=== PATIENT | female | born 1975 | race African-American/Black ===

== ENCOUNTER 2017-06-13 10:04 | Emergency (ER) | payer OTHER ==
[~2017-06-13] VITALS: Ht 156.2 cm; Wt 120.2 kg
[~2017-06-13 10:04] MED LIST: ALBU2.5V14 NEB; AZIT1PAC PO; CETI10TA16 PO; CLAR500T PO; Doxycycline Hyclate PO; FLUO20TA11 PO; FLUO60TA PO; FLUT1DIS3 INH; HYDR-971 PO; HYDR115S2 PO; HYDR25CA75 PO; IBUP-1060 PO; LEVO500T59 PO; LURA40TA PO; METH4TAB2 PO; NAPR500T8 PO; POTA10TA12 PO; PRED-220 PO; PRED20TA PO; PRED50TA PO; PROAIR HFA8.5 GM IH; TOPI25TA52 PO; TRAM50TA PO
[2017-06-13 10:25] VITALS: BP 131/73
--- NOTE | 2017-06-13 10:54 | PHYS DOC ---
Past Medical History Past Medical History: Anxiety, Asthma, Bipolar, Depression Additional Past Medical Histor: carpal tunnel (bilaterally), delusional thinking, pseudopregnancy, si Past Surgical History: Hysterectomy Additional Past Surgical Histo: sinus surgery Alcohol Use: None Drug Use: None Adult General Chief Complaint Chief Complaint: Intermittent dizziness, rash HPI HPI Patient is a 41 year old female who presents with 2 complaints. She's had a rash for several days, worsening in nature. She had placed hydrocortisone on it and this is what worsen. She was exposed to ring worm by her family member. Denies any known fevers, it is pruritic in nature. She also complains of intermittent dizziness where she feels like she is losing her balance. She states it does worsen when she gets up and moves around, she does work in housekeeping. It is not present at all times, does resolve when she rests. Denies any runny nose or other symptoms. She denies any focal weakness, she has history of migraines but does not have migraines with this. Denies any blurry vision. Review of Systems Review of Systems Constitutional: Denies fever or chills [] Eyes: Denies change in visual acuity, redness, or eye pain [] HENT: Denies nasal congestion or sore throat [] Respiratory: Denies cough or shortness of breath [] Cardiovascular: Denies Chest pain GI: Denies abdominal pain, nausea, vomiting, bloody stools or diarrhea [] : Denies dysuria or hematuria [] Musculoskeletal: Denies back pain or joint pain [] Integument: Rash Neurologic: Per history of present illness Allergies Allergies Allergies Coded Allergies Type Severity Reaction Last Updated Verified Penicillins Allergy Intermediate 08/31/15 Yes cephalexin Allergy Intermediate 08/31/15 Yes doxycycline Allergy Intermediate 12/07/15 Yes Physical Exam Physical Exam Constitutional: Well developed, well nourished, no acute distress, non-toxic appearance. [] HENT: Normocephalic, atraumatic, bilateral external ears normal, oropharynx moist, no oral exudates, nose normal. [] Eyes: PERRLA, EOMI, conjunctiva normal, no discharge. [] Neck: Normal range of motion, no tenderness, supple, no stridor. [] Cardiovascular:Heart rate bradycardic with regular rhythm, no murmur [] Lungs & Thorax: Bilateral breath sounds clear to auscultation [] Abdomen: Bowel sounds normal, soft, no tenderness, no masses, no pulsatile masses. [] Skin: Warm, dry, areas of circular erythema with raised borders, consistent with ringworm, right back/left face/left arm Back: No tenderness, no CVA tenderness. [] Extremities: No tenderness, no cyanosis, no clubbing, ROM intact, no edema. [] Neurologic: Alert and oriented X 3, normal motor function, normal sensory function, no focal deficits noted. CN II-XII intact Psychologic: Affect normal, judgement normal, mood normal. [] Current Patient Data Vital Signs Vital Signs Date Time Temp Pulse Resp B/P (MAP) Pulse Ox O2 Delivery O2 Flow Rate FiO2 06/13/17 10:25 98.5 58 16 131/73 (92) 97 Room Air 98.5 Lab Values Laboratory Tests Test 06/13/17 09:31 06/13/17 10:15 06/13/17 10:55 06/13/17 11:02 POC Urine HCG, Qualitative Hcg negative (Negative) Urine Collection Type Unknown Urine Color Yellow Urine Clarity Clear Urine pH 6.0 Urine Specific [place] 1.025 Urine Protein Negative mg/dL (NEG-TRACE) Urine Glucose (UA) Negative mg/dL (NEG) Urine Ketones (Stick) Negative mg/dL (NEG) Urine Blood Negative (NEG) Urine Nitrite Negative (NEG) Urine Bilirubin Negative (NEG) Urine Urobilinogen Dipstick 1.0 mg/dL (0.2 mg/dL) Urine Leukocyte Esterase Negative (NEG) Urine RBC 0 /HPF (0-2) Urine WBC 0 /HPF (0-4) Urine Squamous Epithelial Cells Few /LPF Urine Bacteria 0 /HPF (0-FEW) Urine Mucus Marked /LPF White Blood Count 5.7 x10^3/uL (4.0-11.0) Red Blood Count 4.34 x10^6/uL (3.50-5.40) Hemoglobin 13.1 g/dL (12.0-15.5) Hematocrit 39.8 % (36.0-47.0) Mean Corpuscular Volume 92 fL (79-100) Mean Corpuscular Hemoglobin 30 pg (25-35) Mean Corpuscular Hemoglobin Concent 33 g/dL (31-37) Red Cell Distribution Width 14.0 % (11.5-14.5) Platelet Count 200 x10^3/uL (140-400) Neutrophils (%) (Auto) 51 % (31-73) Lymphocytes (%) (Auto) 37 % (24-48) Monocytes (%) (Auto) 8 % (0-9) Eosinophils (%) (Auto) 3 % (0-3) Basophils (%) (Auto) 1 % (0-3) Neutrophils # (Auto) 2.9 x10^3uL (1.8-7.7) Lymphocytes # (Auto) 2.1 x10^3/uL (1.0-4.8) Monocytes # (Auto) 0.4 x10^3/uL (0.0-1.1) Eosinophils # (Auto) 0.2 x10^3/uL (0.0-0.7) Basophils # (Auto) 0.1 x10^3/uL (0.0-0.2) POC Hemoglobin 13.3 g/dL (12-15) POC Hematocrit 39 % (36-40) POC Sodium 142 mmol/L (135-145) POC Potassium 3.7 mmol/L (3.5-5.0) POC Chloride 103 mmol/L (98-110) POC Total CO2 25 mmol/L (23-32) Anion Gap 18 mmol/L (6-14) H POC Blood Urea Nitrogen 15 mg/dL (8-26) POC Creatinine 0.7 mg/dL (0.5-1.4) Glucose Level 93 mg/dL (70-99) POC Ionized Calcium (Jose) 1.17 mmol/L (1.13-1.32) Laboratory Tests 06/13/17 10:55 Laboratory Tests 06/13/17 11:02 EKG EKG 55 bpm, sinus, normal axis, normal intervals, no ST elevation, J-point elevation in V2, aVL, T waves nonischemic, interpreted by me [] Radiology/Procedures Radiology/Procedures CT head: IMPRESSION: No acute intracranial abnormality is detected. Course & Med Decision Making Course & Med Decision Making Pertinent Labs and Imaging studies reviewed. (See chart for details) Patient really has ringworm and we will treat with appropriate medications. Dizziness causes unknown, patient and that she has not anything to eat or drink today which is not uncommon. She does have some intermittent bradycardia as low as 45 on the monitor but more consistently in the upper 50s. CT of the head was performed along with lab work and EKG. HR remained steady in the 50s. Remaining workup unremarkable. Will treat with Lotrimin cream, recommend close f/u with PCP Elliott Disclaimer Elliott Disclaimer This electronic medical record was generated, in whole or in part, using a voice recognition dictation system. Departure Departure Impression: Primary Impression: Ringworm Additional Impression: Dizziness Disposition: HOME, SELF-CARE Condition: STABLE Referrals: UNKNOWN PCP NAME (PCP) Patient Instructions: Body Ringworm, Dizziness, [id number] Additional Instructions: Please schedule follow-up with your doctor to ensure your symptoms are well controlled. Drink water and eat regularly Problem Qualifiers JUAN HINOJOSA MD Jun 13, 2017 10:54
[2017-06-13 11:01] LABS: BILIRUBIN,URINE NEGATIVE (NEG); GLUCOSE,URINE NEGATIVE (NEG); NITRITE,URINE NEGATIVE (NEG); PROTEIN,URINE NEGATIVE (NEG-TRACE)
[2017-06-13 11:10] LABS: BASO # 0.1 x10^3/uL (0.0-0.2); BASO % 1 % (0-3); EOS % 3 % (0-3); HEMATOCRIT 39.8 % (36.0-47.0); HEMOGLOBIN 13.1 g/dL (12.0-15.5); LYMPH # 2.1 x10^3/uL (1.0-4.8); LYMPH % 37 % (24-48); MEAN CORPUSCULAR HEMOGLOBIN 30 pg (25-35); MEAN CORPUSCULAR HGB CONC 33 g/dL (31-37); MEAN CORPUSCULAR VOLUME 92 fL (79-100); MONO % 8 % (0-9); NEUT % 51 % (31-73); PLATELET COUNT 200 x10^3/uL (140-400); RED BLOOD COUNT 4.34 x10^6/uL (3.50-5.40); WHITE BLOOD COUNT 5.7 x10^3/uL (4.0-11.0)
[2017-06-13 11:10] LABS: POTASSIUM ISTAT 3.7 mmol/L (3.5-5.0)
[2017-06-13 11:15] LABS: BACTERIA,URINE 0 /HPF (0-FEW); RBC,URINE 0 /HPF (0-2); WBC,URINE 0 /HPF (0-4)
[2017-06-13 11:16] LABS: SQUAMOUS EPITHELIAL CELL,UR FEW /LPF
--- NOTE | 2017-06-13 11:23 | RAD ---
CT of the head without contrast, 06/13/2017: History: Dizziness, headache Comparison is made to a study from 02/26/2016. The ventricles are within normal limits in size. There is no shift of the midline structures. There is no evidence of acute intracranial hemorrhage or mass effect. IMPRESSION: No acute intracranial abnormality is detected. PQRS Compliance Statement: One or more of the following individualized dose reduction techniques were utilized for this examination: 1. Automated exposure control 2. Adjustment of the mA and/or kV according to patient size 3. Use of iterative reconstruction technique
[2017-06-13] MEDS ORDERED: CLOT12CR2 TP (11:56)
--- NOTE | 2017-06-13 12:50 | EKG ---
[facility] [address] [place] [address] Test Date: 2017-06-13 Test Time: 10:39:08 Pat Name: JASMIN WESLEY Department: Room: Gender: F Exhibit Electrician: : 1975 Requested By: JUAN HINOJOSA Order Number: [id number] Reading MD: Jennifer Flores Measurements Intervals Silver Rate: 55 P: 51 NC: 162 QRS: 22 QRSD: 92 T: 8 QT: 426 QTc: 410 Interpretive Statements SINUS RHYTHM INCOMPLETE RIGHT BUNDLE BRANCH BLOCK Electronically Signed On 06-14-2017 20:34:10 CDT by Jennifer Flores
== END 2017-06-13 12:10 | disposition home or self-care (01) ==
LOC: ER 10:04
DX: B35.9 Dermatophytosis, unspecified (principal); R42 Dizziness and giddiness; F31.9 Bipolar disorder, unspecified; J45.909 Unspecified asthma, uncomplicated; F41.9 Anxiety disorder, unspecified; Z88.0 Allergy status to penicillin; Z88.1 Allergy status to other antibiotic agents; Z90.49 Acquired absence of other specified parts of digestive tract
CPT/HCPCS: 36415; 70450; 80047; 81001; 81025; 85025; 93005; 99285-25

== ENCOUNTER 2017-07-02 11:04 | Emergency (ER) | payer SELFPAY ==
[~2017-07-02] VITALS: Ht 154.9 cm; Wt 120.2 kg
[~2017-07-02 11:04] MED LIST changes: +CLOT12CR2 TP
[2017-07-02] MEDS ORDERED: HYDROcodone/APAP 5/325MG 1 TAB TABLET PO ONE (11:15)
[2017-07-02 11:16] VITALS: BP 128/70
[2017-07-02] MEDS ORDERED: NAPROXEN 500 MG TABLET PO STA (11:18)
--- NOTE | 2017-07-02 11:23 | PHYS DOC ---
Past Medical History Past Medical History: Anxiety, Asthma, Bipolar, Depression Additional Past Medical Histor: carpal tunnel (bilaterally), delusional thinking, pseudopregnancy, si Past Surgical History: Hysterectomy Additional Past Surgical Histo: sinus surgery Alcohol Use: None Drug Use: None Adult General Chief Complaint Chief Complaint: KNEE INJURY HPI HPI Patient is a 41 year old female with a history of depression and bipolar anxiety who presents today with throbbing moderate medial left knee pain that began last night after she slipped and fell pain is worse on weight bearing. Patient states she was walking down steps to get into a pool when she slipped and fell rotating her left knee out/externally. Patient denies any loss of consciousness. Denies hitting her head on the ground. Review of Systems Review of Systems Constitutional: Denies fever or chills [] Musculoskeletal: Left knee pain Integument: Denies rash or skin lesions [] Neurologic: Denies headache, focal weakness or sensory changes [] Current Medications Current Medications Current Medications Medications (Trade) Dose Ordered Sig/Francisco Start Time Stop Time Status Last Admin Dose Admin Acetaminophen/ Hydrocodone Bitart (Lortab 5/325) 1 tab 1X ONCE 07/02/17 11:15 07/02/17 11:18 DC 07/02/17 11:24 1 TAB Naproxen (Naprosyn) 500 mg 1X STAT 07/02/17 11:18 07/02/17 11:19 DC 07/02/17 11:24 500 MG Allergies Allergies Allergies Coded Allergies Type Severity Reaction Last Updated Verified Penicillins Allergy Intermediate 08/31/15 Yes cephalexin Allergy Intermediate 08/31/15 Yes doxycycline Allergy Intermediate 12/07/15 Yes Physical Exam Physical Exam Constitutional: Well developed, well nourished, no acute distress, non-toxic appearance. [] Skin: Warm, dry, no erythema, no rash. [] Back: No tenderness, no CVA tenderness. [] Extremities: Left knee with no obvious deformity. Tenderness medially to the left knee. Limited range of motion to the left knee due to pain. Patient is favoring her LLE by holding her left knee straight. +2 left pedal pulse. Cap refill less than 2 seconds the left lower extremity. Sensation intact to the left lower extremity. Neurologic: Alert and oriented X 3, normal motor function, normal sensory function, no focal deficits noted. [] Psychologic: Affect normal, judgement normal, mood normal. [] Current Patient Data Vital Signs Vital Signs Date Time Temp Pulse Resp B/P (MAP) Pulse Ox O2 Delivery O2 Flow Rate FiO2 07/02/17 11:16 97.9 66 20 98 Room Air 97.9 EKG EKG [] Radiology/Procedures Radiology/Procedures [] Course & Med Decision Making Course & Med Decision Making Pertinent Labs and Imaging studies reviewed. (See chart for details) Patient is in the ED with left knee pain that began last night after she fell. Left knee x-rays interpreted by radiologist were negative for any acute findings. Patient was placed in a knee immobilizer by the environmental technician, neurovascular exam is normal. Ice elevation encouraged. Provided crutches, discharged with Ultram. Dragon Disclaimer Dragon Disclaimer This electronic medical record was generated, in whole or in part, using a voice recognition dictation system. Departure Departure Impression: Primary Impression: Fall down steps Additional Impression: Left knee sprain Disposition: HOME, SELF-CARE Condition: STABLE Referrals: UNKNOWN PCP NAME (PCP) SHARON WASHINGTON MD follow up in one week if pain continues Patient Instructions: Fall Prevention and Home Safety, Knee Sprain, Easy-to- Read Additional Instructions: You were seen for left knee sprain. Ice and elevate the extremity. Wear the immobilizer provided as tolerated. Follow-up with orthopedic doctor provided in one week if pain continues. Take the prescribed medicine as needed for pain. Do not drive or operate machinery on the pain medicine. Scripts Tramadol Hcl (ULTRAM) 50 Mg Tablet 1 TAB PO Q6HRS, #30 TAB Prov: AMIRA NOEL APRN 07/02/17 Problem Qualifiers Primary Impression: Fall down steps Encounter type: initial encounter Qualified Codes: W10.8XXA - Fall (on) ( from) other stairs and steps, initial encounter Additional Impression: Left knee sprain Encounter type: initial encounter Involved ligament of knee: unspecified ligament Qualified Codes: S83.92XA - Sprain of unspecified site of left knee, initial encounter AMIRA NOEL APRN Jul 02, 2017 11:23
--- NOTE | 2017-07-02 11:52 | RAD ---
Examination: 3 views of the left knee History: History of slipping in the pool , knee pain. Comparison: None available Findings: The alignment of the knee joint grossly appears unremarkable. There is no acute fracture or dislocation identified. Impression: No acute osseous findings
[2017-07-02] MEDS ORDERED: TRAM-48 PO (12:11)
== END 2017-07-02 12:18 | disposition home or self-care (01) ==
LOC: ER 11:04
DX: S83.92XA Sprain of unspecified site of left knee, initial encounter (principal); F41.9 Anxiety disorder, unspecified; F31.9 Bipolar disorder, unspecified; J45.909 Unspecified asthma, uncomplicated; Z88.0 Allergy status to penicillin; Z88.1 Allergy status to other antibiotic agents; W10.9XXA Fall (on) (from) unspecified stairs and steps, initial encounter; Y93.01 Activity, walking, marching and hiking; Y92.89 Other specified places as the place of occurrence of the external cause; Y99.8 Other external cause status
CPT/HCPCS: 29505; 73562; 99284-25

== ENCOUNTER 2017-12-08 09:07 | Emergency (ER) | payer OTHER | END 2017-12-08 10:45 | disposition home or self-care (01) | LOC: ER 09:07 | DX: S96.912A Strain of unspecified muscle and tendon at ankle and foot level, left foot, initial encounter (principal); M25.531 Pain in right wrist; J45.909 Unspecified asthma, uncomplicated; Z88.0 Allergy status to penicillin; Z88.1 Allergy status to other antibiotic agents; W22.8XXA Striking against or struck by other objects, initial encounter; Y93.89 Activity, other specified; Y92.89 Other specified places as the place of occurrence of the external cause; Y99.8 Other external cause status | CPT/HCPCS: 73110; 73610; 99284 ==

== ENCOUNTER 2018-01-09 15:40 | Emergency (ER) | payer OTHER | END 2018-01-09 16:50 | disposition home or self-care (01) | LOC: ER 15:40 | DX: S83.92XA Sprain of unspecified site of left knee, initial encounter (principal); J45.909 Unspecified asthma, uncomplicated; F31.9 Bipolar disorder, unspecified; Z98.51 Tubal ligation status; Z88.0 Allergy status to penicillin; Z88.1 Allergy status to other antibiotic agents; Z88.8 Allergy status to other drugs, medicaments and biological substances; W01.0XXA Fall on same level from slipping, tripping and stumbling without subsequent striking against object, initial encounter; Y93.89 Activity, other specified; Y99.8 Other external cause status; Y92.89 Other specified places as the place of occurrence of the external cause | CPT/HCPCS: 73564; 99284 ==

== ENCOUNTER 2018-03-24 18:53 | Emergency (ER) | payer OTHER | END 2018-03-24 19:21 | disposition home or self-care (01) | LOC: ER 18:53 | DX: S60.211A Contusion of right wrist, initial encounter (principal); J45.909 Unspecified asthma, uncomplicated; F31.9 Bipolar disorder, unspecified; Z88.0 Allergy status to penicillin; Z88.1 Allergy status to other antibiotic agents; W22.01XA Walked into wall, initial encounter; Y93.89 Activity, other specified; Y99.8 Other external cause status; Y92.89 Other specified places as the place of occurrence of the external cause | CPT/HCPCS: 99283 ==

== ENCOUNTER 2019-02-20 16:26 | Emergency (ER) | payer OTHER ==
[~2019-02-20] VITALS: Ht 154.9 cm; Wt 120.2 kg
[~2019-02-20 16:26] MED LIST changes: +ALBU2.5V8 IH; +CLOT15CR5 TP; +HYDR-3164 PO; -HYDR-971 PO; -PROAIR HFA8.5 GM IH; +TRAM-48 PO
[2019-02-20 16:51] VITALS: BP 144/76
[2019-02-20] MEDS ORDERED: CETI10TA22 PO (18:08)
[2019-02-20] MEDS ORDERED: CIPR10DR AS (18:08)
--- NOTE | 2019-02-20 18:28 | PHYS DOC ---
Past Medical History Past Medical History: Anxiety, Asthma, Bipolar, Depression Additional Past Medical Histor: carpal tunnel (bilaterally), delusional thinking, pseudopregnancy, si (HARMEET SIDDIQUI APRN) Past Surgical History: Tubal ligation Additional Past Surgical Histo: sinus surgery (HARMEET SIDDIQUI APRN) Alcohol Use: None Drug Use: None (HARMEET SIDDIQUI APRN) Adult General Chief Complaint Chief Complaint: EARACHE/EAR PAIN HPI HPI Patient is 43-year-old female who presents with an earache in the left ear and sore throat since Monday night. The patient describes the pain is throbbing also states she has a buzzing in her left ear. Patient denies swimming recently and says that she does not have a history of lots of earaches. Patient rates her severity 10 out of 10. Patient states that she has been getting hot and cold. Patient says that she took some [id number] pain drops in her left ear on Monday this did not help. The patient has a history of allergies and takes what she thinks is Claritin on a daily basis. This complaint has continued to persist and caused her to decide to come to the ER this evening. (HARMEET SIDDIQUI APRN) Review of Systems Review of Systems Constitutional: Has been having intermittent hot and cold [] Eyes: Denies change in visual acuity, redness, or eye pain [] HENT: Sore throat, L ear pain, Buzzing in L ear. Respiratory: Denies cough or shortness of breath [] Cardiovascular: No additional information not addressed in HPI [] GI: Denies abdominal pain, nausea, vomiting, bloody stools or diarrhea [] : Denies dysuria or hematuria [] Musculoskeletal: Denies back pain or joint pain [] Integument: Denies rash or skin lesions [] Neurologic: Denies headache, focal weakness or sensory changes [] Endocrine: Denies polyuria or polydipsia [] All other systems were reviewed and found to be within normal limits, except as documented in this note. (HARMEET SIDDIQUI APRN) Allergies Allergies Allergies Coded Allergies Type Severity Reaction Last Updated Verified Penicillins Allergy Intermediate 08/31/15 Yes cephalexin Allergy Intermediate 08/31/15 Yes doxycycline Allergy Intermediate 12/07/15 Yes (HARMEET TRIVEDI DO) Physical Exam Physical Exam Constitutional: Well developed, well nourished, no acute distress, non-toxic appearance. [] HENT: Normocephalic, atraumatic, left ear has inflammation and exudate, right ear was unable to visualize tympanic membrane due to earwax, oropharynx moist, tonsillar swelling bilaterally, Uvula is midline, patient is swallowing without difficulty, and no pulling of secretions. [] Eyes: PERRLA, conjunctiva normal, no discharge. [] Neck: No nuchal rigidity, trachea midline [] Cardiovascular:Heart rate regular rhythm, no murmur [] Lungs & Thorax: Bilateral breath sounds clear to auscultation [] Skin: Warm, dry, no erythema, no rash. [] Extremities: No tenderness, no cyanosis, no clubbing, ROM intact, no edema. [] Neurologic: Alert and oriented X 3 Psychologic: Affect normal, judgement normal, mood normal. [] (HARMEET SIDDIQUI APRN) Current Patient Data Vital Signs Vital Signs Date Time Temp Pulse Resp B/P (MAP) Pulse Ox O2 Delivery O2 Flow Rate FiO2 02/20/19 16:51 98.5 85 20 144/76 (98) 98 Room Air 98.5 (TRIVEDI,HARMEET Martins DO) EKG EKG [] (HARMEET SIDDIQUI APRN) Radiology/Procedures Radiology/Procedures [] (HARMEET SIDDIQUI APRN) Course & Med Decision Making Course & Med Decision Making Patient was evaluated for L ear pain and sore throat. Clinical exam revealed Otitis Externa. Offered strep test, pt declined. Discussed with patient to be sure to take all antibiotics and can use warm compresses. Also discussed with the patient that she should follow up with pcp or ENT symptoms do not improve. Discussed her sore throat and she asked for me to prescribe her an antihistamine has history of seasonal allergies. Education on signs and symptoms to return to ER for and discharge symptoms discussed. Patient has been non-toxic in appearance and having no difficulty swallowing. Pt had no care provided by Kimberly Gilliam NP during this ER visit. (HARMEET SIDDIQUI APRN) Dragon Disclaimer Dragon Disclaimer This electronic medical record was generated, in whole or in part, using a voice recognition dictation system. (HARMEET SIDDIQUI APRN) Departure Departure Impression: Primary Impression: Otitis externa of left ear Additional Impression: Environmental and seasonal allergies Disposition: HOME, SELF-CARE Condition: STABLE Referrals: NATANAEL LEES APRN (PCP) Patient Instructions: Otalgia, Otitis Externa, [id number] Additional Instructions: For pain control please take either ibuprofen or Tylenol please use the directions on the container. Please be sure to finish all the antibiotic for the complete 7 days. If you continue having problems follow up with the primary care doctor or make an appointment with an ENT. Scripts Cetirizine Hcl (ZYRTEC) 10 Mg Tablet 1 TAB PO DAILY, #30 TAB 0 Refills Prov: HARMEET SIDDIQUI APRN 02/20/19 Ciprofloxacin/Hydrocortisone (CIPRO HC OTIC SUSPENSION) 10 Ml Drops.susp 3 DROP BID for ottitis externa for 7 Days, ML 0 Refills Prov: HARMEET SIDDIQUI APRN 02/20/19 Attending Signature Attending Signature I have reviewed the PA/SOFTWARE TEST DEVELOPER's note and plan of care. I was available for consultation as needed during the patient's visit in the emergency department. I agree with the clinical impression, plan, and disposition. (HARMEET TRIVEDI DO) Problem Qualifiers HARMEET SIDDIQUI APRN Feb 20, 2019 18:27 HARMEET TRIVEDI DO Feb 21, 2019 05:37
== END 2019-02-20 18:44 | disposition home or self-care (01) ==
LOC: ER 16:26
DX: H60.92 Unspecified otitis externa, left ear (principal); J45.909 Unspecified asthma, uncomplicated; F31.9 Bipolar disorder, unspecified; F41.9 Anxiety disorder, unspecified; Z88.0 Allergy status to penicillin; Z88.1 Allergy status to other antibiotic agents
CPT/HCPCS: 99283

== ENCOUNTER 2020-04-08 20:35 | Emergency (ER) | payer OTHER ==
[~2020-04-08] VITALS: Ht 156.2 cm; Wt 122.7 kg
[~2020-04-08 20:35] MED LIST changes: +CETI10TA24 PO; +CIPR10DR AS; +CLAR-7 PO; -CLAR500T PO
--- NOTE | 2020-04-08 21:51 | RAD ---
Study: CR ANKLE RIGHT 2V Indication: Twisting injury. Comparison: None. Findings: Edematous soft tissues about the ankle as well as extending along the dorsum of the foot. No displaced fracture at the ankle. The ankle mortise is symmetric. Findings at the anterior ankle which can be seen with anterior impingement. Subtle cortical irregularity along the proximal/dorsal aspect of the navicular bone. Impression: 1. No fracture or traumatic malalignment at the ankle. 2. Very subtle cortical irregularity at the proximal/dorsal aspect of the navicular. The overlying soft tissues are edematous. Recommend correlation for localized tenderness that would suggest a nondisplaced avulsion injury. Electronically signed by: JOLLY COBOS MD (04/08/2020 9:48 PM) [id number]
[2020-04-08] MEDS ORDERED: METH-38 PO (22:06)
--- NOTE | 2020-04-08 22:06 | PHYS DOC ---
Past Medical History Past Medical History: Anxiety, Asthma, Bipolar, Depression, Migraines Additional Past Medical Histor: carpal tunnel (bilaterally), delusional thinking, pseudopregnancy, si Past Surgical History: Tubal ligation, Other Additional Past Surgical Histo: sinus surgery, PARTIAL TUBAL LIGATION Smoking Status: Never Smoker Alcohol Use: None Drug Use: None General Adult EDM: Chief Complaint: LOWER EXT PAIN HPI: HPI: 44-year-old female past medical history significant for asthma, obesity, depression and sinus disease, presents to the ED with complaints of accidental slip and fall in her shower around 3:30 PM this afternoon. Patient states her left leg slipped forward as her right ankle twisted, landed with her legs underneath her. Did not hit her head or lose consciousness. Is not on any anticoagulants. Complains of left posterior buttock pain that radiates down her left leg and right lateral ankle pain. No prior surgical history. Review of Systems: Review of Systems: Constitutional: Denies fever or chills. [] Eyes: Denies change in visual acuity. [] HENT: Denies nasal congestion or sore throat. [] Respiratory: Denies cough or shortness of breath. [] Cardiovascular: Denies chest pain or edema. [] GI: Denies abdominal pain, nausea, vomiting, bloody stools or diarrhea. [] : Denies dysuria. [] Musculoskeletal: Denies back pain or joint pain. [] Integument: Denies rash. [] Neurologic: Denies headache, focal weakness or sensory changes. [] Endocrine: Denies polyuria or polydipsia. [] Lymphatic: Denies swollen glands. [] Psychiatric: Denies depression or anxiety. [] Heart Score: Risk Factors: Risk Factors: DM, Current or recent (<one month) smoker, HTN, HLP, family history of CAD, obesity. Risk Scores: Score 0 - 3: 2.5% MACE over next 6 weeks - Discharge Home Score 4 - 6: 20.3% MACE over next 6 weeks - Admit for Clinical Observation Score 7 - 10: 72.7% MACE over next 6 weeks - Early Invasive Strategies Allergies: Allergies: Allergies Coded Allergies Type Severity Reaction Last Updated Verified Penicillins Allergy Intermediate 08/31/15 Yes cephalexin Allergy Intermediate 08/31/15 Yes doxycycline Allergy Intermediate 12/07/15 Yes Physical Exam: PE: Constitutional: Well developed, well nourished, no acute distress, non-toxic appearance. [] HENT: Normocephalic, atraumatic, bilateral external ears normal, oropharynx moist, no oral exudates, nose normal. [] Eyes: PERRLA, EOMI, conjunctiva normal, no discharge. [] Neck: Normal range of motion, no tenderness, supple, no stridor. [] Cardiovascular:Heart rate regular rhythm, no murmur [] Lungs & Thorax: Bilateral breath sounds clear to auscultation [] Abdomen: Bowel sounds normal, soft, no tenderness, no masses, no pulsatile masses. [] Skin: Warm, dry, no erythema, no rash. [] Back: No tenderness, no CVA tenderness. [] Extremities: No tenderness, no cyanosis, no clubbing, ROM intact, no edema. [] Neurologic: Alert and oriented X 3, normal motor function, normal sensory function, no focal deficits noted. [] ambulates w/o distress/worsening r ankle pain Psychologic: Affect normal, judgement normal, mood normal. [] Current Patient Data: Vital Signs: Vital Signs Date Time Temp Pulse Resp B/P (MAP) Pulse Ox O2 Delivery O2 Flow Rate FiO2 04/08/20 20:49 98.0 78 18 145/87 (106) 98 Room Air 98.0 EKG: EKG: [] Radiology/Procedures: Radiology/Procedures: IMAGING REPORT Signed PATIENT: JASMIN WESLEY ACCOUNT: [id number] : 1975 LOCATION: ER AGE: 44 SEX: F EXAM STATUS: REG ER ORD. PHYSICIAN: GONZALO LOMBARDO DO REASON: twisted anikle PROCEDURE: ANKLE RIGHT 2V Study: CR ANKLE RIGHT 2V Indication: Twisting injury. Comparison: None. Findings: Edematous soft tissues about the ankle as well as extending along the dorsum of the foot. No displaced fracture at the ankle. The ankle mortise is symmetric. Findings at the anterior ankle which can be seen with anterior impingement. Subtle cortical irregularity along the proximal/dorsal aspect of the navicular bone. Impression: 1. No fracture or traumatic malalignment at the ankle. 2. Very subtle cortical irregularity at the proximal/dorsal aspect of the navicular. The overlying soft tissues are edematous. Recommend correlation for localized tenderness that would suggest a nondisplaced avulsion injury. Electronically signed by: JOLLY COBOS MD (04/08/2020 9:48 PM) [id number] DICTATED and SIGNED BY: JOLLY COBOS MD DATE: 04/08/20 2148 Course & Med Decision Making: Course & Med Decision Making Pertinent Labs and Imaging studies reviewed. (See chart for details) [] Dragon Disclaimer: Dragon Disclaimer: This electronic medical record was generated, in whole or in part, using a voice recognition dictation system. Departure Departure Impression: Primary Impression: Left sciatic nerve pain Additional Impression: Right ankle sprain Disposition: 01 HOME, SELF-CARE Condition: STABLE Referrals: NATANAEL LEES APRN (PCP) SHARON WASHINGTON MD Patient Instructions: Ankle Sprain, Sciatica Scripts Methocarbamol (ROBAXIN-750) 750 Mg Tablet 1 TAB PO BID for 30 Days, #20 TAB 0 Refills Prov: GONZALO LOMBARDO DO 04/08/20 Justicifation of Admission Dx: Justifications for Admission: Justification of Admission Dx: N/A GONZALO LOMBARDO DO Apr 08, 2020 22:06
[2020-04-08 22:20] VITALS: BP 129/77
== END 2020-04-08 22:20 | disposition home or self-care (01) ==
LOC: ER 20:35
DX: S93.401A Sprain of unspecified ligament of right ankle, initial encounter (principal); M54.42 Lumbago with sciatica, left side; F31.9 Bipolar disorder, unspecified; J45.909 Unspecified asthma, uncomplicated; G43.909 Migraine, unspecified, not intractable, without status migrainosus; F41.9 Anxiety disorder, unspecified; Z88.0 Allergy status to penicillin; Z88.1 Allergy status to other antibiotic agents; X50.9XXA Other and unspecified overexertion or strenuous movements or postures, initial encounter; Y93.89 Activity, other specified; Y92.89 Other specified places as the place of occurrence of the external cause; Y99.8 Other external cause status
CPT/HCPCS: 73600; 99284

== ENCOUNTER 2020-05-13 18:38 | Emergency (ER) | payer OTHER ==
[~2020-05-13] VITALS: Ht 157.5 cm; Wt 127.0 kg
[~2020-05-13 18:38] MED LIST changes: +METH-38 PO
[2020-05-13 19:33] VITALS: BP 143/80
--- NOTE | 2020-05-13 19:59 | PHYS DOC ---
Past Medical History Past Medical History: Anxiety, Asthma, Bipolar, Depression, Migraines Additional Past Medical Histor: carpal tunnel (bilaterally), delusional thinking, pseudopregnancy, si Past Surgical History: Tubal ligation, Other Additional Past Surgical Histo: sinus surgery, PARTIAL TUBAL LIGATION Smoking Status: Never Smoker Alcohol Use: None Drug Use: None General Adult EDM: Chief Complaint: THUMB HPI: HPI: Patient is a 44 year old female who presents with right thumb pain after hyperextending it while moving a bed today. Patient rates pain 9 out of 10. She took nothing for treatment at home. No radiation of pain. No alleviating factors, pain worsens with movement. Review of Systems: Review of Systems: Constitutional: Denies fever or chills. [] Musculoskeletal: See HPI Integument: Denies rash. [] Psychiatric: Denies depression or anxiety. [] Heart Score: Risk Factors: Risk Factors: DM, Current or recent (<one month) smoker, HTN, HLP, family history of CAD, obesity. Risk Scores: Score 0 - 3: 2.5% MACE over next 6 weeks - Discharge Home Score 4 - 6: 20.3% MACE over next 6 weeks - Admit for Clinical Observation Score 7 - 10: 72.7% MACE over next 6 weeks - Early Invasive Strategies Allergies: Allergies: Allergies Coded Allergies Type Severity Reaction Last Updated Verified Penicillins Allergy Intermediate 08/31/15 Yes cephalexin Allergy Intermediate 08/31/15 Yes doxycycline Allergy Intermediate 12/07/15 Yes Physical Exam: PE: Constitutional: Well developed, well nourished, no acute distress, non-toxic appearance. [] HENT: Normocephalic, atraumatic, bilateral external ears normal, nose normal. [] Eyes: PERRLA, EOMI, conjunctiva normal, no discharge. [] Neck: Normal range of motion, no stridor. [] Cardiovascular:Heart rate regular rhythm Lungs & Thorax: Respirations even and unlabored, no retractions, no respiratory distress Skin: Warm, dry; right thumb: 1+ swelling noted to MCP joint Extremities: No cyanosis; R. thumb: sensation intact, warm finger, cap refill less than 3 seconds, strong radial pulse, limited ROM due to pain. [] Neurologic: Alert and oriented X 3, no focal deficits noted. [] Psychologic: Affect normal, judgement normal, mood normal. [] Current Patient Data: Vital Signs: Vital Signs Date Time Temp Pulse Resp B/P (MAP) Pulse Ox O2 Delivery O2 Flow Rate FiO2 05/13/20 19:33 98.1 60 18 143/80 (101) 95 Room Air 98.1 EKG: EKG: [] Radiology/Procedures: Radiology/Procedures: PROCEDURE: FINGER(S) RIGHT Exam: Right finger 3 views INDICATION: Right thumb pain TECHNIQUE: Frontal view of the right hand with oblique and lateral views of the first digit Comparisons: None FINDINGS: Bone mineralization is normal. No acute or healed fractures. Soft tissues are unremarkable. Joint spaces are well-maintained. IMPRESSION: No acute osseous abnormality. [] Course & Med Decision Making: Course & Med Decision Making Pertinent Labs and Imaging studies reviewed. (See chart for details) [] Dragon Disclaimer: Dragon Disclaimer: This electronic medical record was generated, in whole or in part, using a voice recognition dictation system. Departure Departure Impression: Primary Impression: Closed fracture of right thumb with routine healing Qualified Codes: S62.514D - Nondisplaced fracture of proximal phalanx of right thumb, subsequent encounter for fracture with routine healing Disposition: HOME, SELF-CARE Condition: STABLE Referrals: VISHAL QUINTANILLA MD Patient Instructions: Thumb Fracture Additional Instructions: You may take Tylenol or ibuprofen as needed for pain. Recommend application of ice, elevation, and rest of affected extremity. Wear the splint that was placed until follow up appointment with Dr. Quintanilla's office, call in the morning for an appointment. Return to the ER if your symptoms worsen. Justicifation of Admission Dx: Justifications for Admission: Justification of Admission Dx: N/A Splinting Splinting : Location: R thumb Hand-Made Type: orthoglass Splint: thumb spica Pre-Proc Neuro Vasc Exam: normal Post-Proc Neuro Vasc Exam: normal, unchanged from pre-exam MAURA STALLWORTH APRN May 13, 2020 19:59
--- NOTE | 2020-05-13 20:24 | RAD ---
Exam: Right finger 3 views INDICATION: Right thumb pain TECHNIQUE: Frontal view of the right hand with oblique and lateral views of the first digit Comparisons: None FINDINGS: Bone mineralization is normal. No acute or healed fractures. Soft tissues are unremarkable. Joint spaces are well-maintained. IMPRESSION: No acute osseous abnormality. Electronically signed by: Juana Proctor MD (05/13/2020 8:21 PM) [id number]
== END 2020-05-13 21:00 | disposition home or self-care (01) ==
LOC: ER 18:38
DX: S62.511A Displaced fracture of proximal phalanx of right thumb, initial encounter for closed fracture (principal); F41.9 Anxiety disorder, unspecified; J45.909 Unspecified asthma, uncomplicated; F32.9 Major depressive disorder, single episode, unspecified; G43.909 Migraine, unspecified, not intractable, without status migrainosus; Z98.51 Tubal ligation status; Z98.890 Other specified postprocedural states; Z88.0 Allergy status to penicillin; Z88.1 Allergy status to other antibiotic agents; Z88.6 Allergy status to analgesic agent; X50.9XXA Other and unspecified overexertion or strenuous movements or postures, initial encounter; Y93.89 Activity, other specified; Y92.89 Other specified places as the place of occurrence of the external cause; Y99.8 Other external cause status
CPT/HCPCS: 29125; 73140; 99283

== ENCOUNTER → 2020-09-03 | Outpatient (CLI) | payer OTHER ==
[~2020-09-03] MED LIST changes: -CETI10TA24 PO; +CETI10TA74 PO
--- NOTE | 2020-09-03 10:29 | RAD ---
EXAM: Lumbar spine, 3 views. HISTORY: Pain. COMPARISON: None. FINDINGS: 3 views of the lumbar spine are obtained. There is mild lumbar levoscoliosis centered at L3. There is minimal grade 1 anterolisthesis of L5 on L1. There is mild multilevel endplate remodeling and facet arthropathy. IMPRESSION: 1. Mild multilevel degenerative change. 2. No acute osseous finding. Electronically signed by: Liya Perez MD (09/03/2020 10:27 AM) [id number]
== END ==
LOC: RAD 09:57
PROVIDERS: ATTEND Family Medicine
DX: M47.816 Spondylosis without myelopathy or radiculopathy, lumbar region (principal); M43.16 Spondylolisthesis, lumbar region; M41.86 Other forms of scoliosis, lumbar region
CPT/HCPCS: 72100

== ENCOUNTER 2021-06-16 08:40 | Emergency (ER) | payer OTHER ==
[~2021-06-16] VITALS: Ht 157.5 cm; Wt 160.0 kg
[2021-06-16 09:01] VITALS: BP 112/62
--- NOTE | 2021-06-16 09:42 | RAD ---
INDICATION: Reason: COUGH / Spl. Instructions: / History: COMPARISON: December 07, 2015 FINDINGS: Single view of chest obtained. Cardiac silhouette is mildly prominent in size. Hazy opacities at the lung bases. No gross osseous de structive lesion IMPRESSION: * Hazy opacities at the left greater than right lung base which could be from a combination of overl phil soft tissue structures as well as atelectasis or infiltrate. Electronically signed by: Arron Hooks MD (06/16/2021 9:39 AM) [id number]
[2021-06-16] MEDS ORDERED: ACETAMINOPHEN 500 MG TABLET PO ONE (10:00)
--- NOTE | 2021-06-16 10:24 | PHYS DOC ---
Past Medical History Past Medical History: Anxiety, Asthma, Bipolar, Depression, Migraines Additional Past Medical Histor: carpal tunnel (bilaterally), delusional thinking, pseudopregnancy, si Past Surgical History: Tubal ligation, Other Additional Past Surgical Histo: sinus surgery, PARTIAL TUBAL LIGATION Smoking Status: Never Smoker Alcohol Use: None Drug Use: None General Adult EDM: Chief Complaint: COUGH HPI: HPI: Patient is a 45 year old female who present to ER for evaluation of cough and trouble breathing for 3 days. Patient had not been vaccinated for COVID-19. Patient has history of asthma. Patient used her inhaler at home but did not get better so she came in for evaluation. Patient denies any chest pain, no headache, no abdominal pain, no nausea vomiting. Patient is not sure if she had a fever at home. Review of Systems: Review of Systems: Constitutional: Denies fever or chills. [] Eyes: Denies change in visual acuity. [] HENT: Denies nasal congestion or sore throat. [] Respiratory: Positive for cough and trouble breathing. Cardiovascular: Denies chest pain or edema. [] GI: Denies abdominal pain, nausea, vomiting, bloody stools or diarrhea. [] : Denies dysuria. [] Musculoskeletal: Denies back pain or joint pain. [] Integument: Denies rash. [] Neurologic: Denies headache, focal weakness or sensory changes. [] Endocrine: Denies polyuria or polydipsia. [] Lymphatic: Denies swollen glands. [] Psychiatric: Denies depression or anxiety. [] Heart Score: C/O Chest Pain: N/A Risk Factors: Risk Factors: DM, Current or recent (<one month) smoker, HTN, HLP, family history of CAD, obesity. Risk Scores: Score 0 - 3: 2.5% MACE over next 6 weeks - Discharge Home Score 4 - 6: 20.3% MACE over next 6 weeks - Admit for Clinical Observation Score 7 - 10: 72.7% MACE over next 6 weeks - Early Invasive Strategies Current Medications: Current Medications Medications (Trade) Dose Ordered Sig/Francisco Start Time Stop Time Status Last Admin Dose Admin Acetaminophen (Tylenol) 1,000 mg 1X ONCE 06/16/21 10:00 06/16/21 10:01 DC 06/16/21 10:03 1,000 MG Allergies: Allergies: Allergies Coded Allergies Type Severity Reaction Last Updated Verified Penicillins Allergy Intermediate 08/31/15 Yes cephalexin Allergy Intermediate 08/31/15 Yes doxycycline Allergy Intermediate 12/07/15 Yes Physical Exam: PE: Constitutional: Well developed, well nourished, no acute distress, non-toxic appearance. [] HENT: Normocephalic, atraumatic, bilateral external ears normal, oropharynx moist, no oral exudates, nose normal. [] Eyes: PERRLA, EOMI, conjunctiva normal, no discharge. [] Neck: Normal range of motion, no tenderness, supple, no stridor. [] Cardiovascular:Heart rate regular rhythm, no murmur [] Lungs & Thorax: Bilateral breath sounds clear to auscultation [] Abdomen: Bowel sounds normal, soft, no tenderness, no masses, no pulsatile masses. [] Skin: Warm, dry, no erythema, no rash. [] Back: No tenderness, no CVA tenderness. [] Extremities: No tenderness, no cyanosis, no clubbing, ROM intact, no edema. [] Neurologic: Alert and oriented X 3, normal motor function, normal sensory function, no focal deficits noted. [] Psychologic: Affect normal, judgement normal, mood normal. [] Current Patient Data: Labs: Laboratory Tests Test 06/16/21 09:20 SARS-CoV-2 Antigen (Rapid) Positive (NEGATIVE) *A Vital Signs: Vital Signs Date Time Temp Pulse Resp B/P (MAP) Pulse Ox O2 Delivery O2 Flow Rate FiO2 06/16/21 09:01 102.1 108 22 112/62 (101) 94 Room Air 102.1 EKG: EKG: [] Radiology/Procedures: Radiology/Procedures: [][facility] [address] [place] [address] IMAGING REPORT Signed PATIENT: JASMIN WESLEY ACCOUNT: [id number] : 1975 LOCATION: ER AGE: 45 SEX: F EXAM STATUS: REG ER ORD. PHYSICIAN: JENN SAWYER DO REASON: COUGH PROCEDURE: CHEST AP ONLY INDICATION: Reason: COUGH / Spl. Instructions: / History: COMPARISON: December 07, 2015 FINDINGS: Single view of chest obtained. Cardiac silhouette is mildly prominent in size. Hazy opacities at the lung bases. No gross osseous destructive lesion IMPRESSION: * Hazy opacities at the left greater than right lung base which could be from a combination of overlying soft tissue structures as well as atelectasis or infiltrate. Electronically signed by: Mily Alford MD (06/16/2021 9:39 AM) [id number] DICTATED and SIGNED BY: MILY ALFORD MD DATE: 06/16/21 [id number] Course & Med Decision Making: Course & Med Decision Making Pertinent Labs and Imaging studies reviewed. (See chart for details) Patient oxygen saturation is 94% to 95% on room air, he was tested positive for COVID-19, she required no oxygen, patient will be discharged home with prednisone and Zithromax. Patient was given COVID-19 information, she was instructed to stay on for 14 days. Dragon Disclaimer: Dragon Disclaimer: This electronic medical record was generated, in whole or in part, using a voice recognition dictation system. Departure Departure Impression: Primary Impression: Pneumonia due to COVID-19 virus Disposition: HOME / SELF CARE / HOMELESS Condition: STABLE Referrals: NO PCP (PCP) Please follow up with [facility] this week. [address], [address] [place] [address] Phone number: [phone] Patient Instructions: Pneumonia, Adult Additional Instructions: You have been tested for or diagnosed with COVID-19. It is an infection caused by a new type of coronavirus. COVID-19 will cause cold-like or mild flu symptoms in most. It can cause more severe symptoms like problems breathing in some. There is no treatment for COVID-19. The body will clear the infection over time. Self-care will help to ease discomfort. Steps to Take: Self-Care Rest as needed. Healthy habits may help you feel better. Steps include: Choose healthy foods including fruits and vegetables. Drink water throughout the day. Get plenty of sleep each night. If you smoke, try to quit. It may ease breathing. Avoid alcohol. Keep Others Healthy The virus can spread to others. Droplets are released every time you sneeze or cough. The droplets can get into the mouth, nose, or eyes of people near you and lead to infection. To lower the chances of spreading COVID-19 to others: Stay at home until your doctor has said it is safe to leave. If you tested positive this will mean staying isolated until both of the following are true: At least 7 days have passed since the start of illness. You are free of fever for at least 72 hours without the use of medicine. During this time: - Avoid public areas, events, or transportation. Do not return to work or school until your doctor has said it is safe to do so. - Call ahead if you need to go to a medical center. Let them know you may have COVID-19. It will help them guide you where to go. They may also ask you to wear a facemask when you come to the office. - If you call for emergency medical services, let them know you may have COVID- 19. While at home: - Try to avoid close contact with others. Stay about 6 feet away. - If possible, spend most of your time in a separate room from others. - Use a face mask if you will be in close contact with others such as sharing a room or vehicle. - Have someone wipe down common surfaces in the home. Use household rn admissions every day on areas like doorknobs, counters, or sinks. - Cough or sneeze into a tissue. Throw the tissue away right after use. If a tissue is not available, cough or sneeze into your elbow. - Wash your hands often. Wash them after sneezing or coughing. Use soap and water and wash for at least 20 seconds. Alcohol based hand commercial or institutional cleaner can be used if soap and water is not available. - Do not prepare food for others. Avoid sharing personal items like forks, spoons, or toothbrushes. - Avoid close contact with pets while you are sick. There is no evidence of the virus passing to pets. This is a safety step until more is known about this virus. Isolation can be frustrating. Social interaction can help. Keep in touch with friends and family through phone and tech options. You can still interact with others in you r home, just keep a safe distance of about 6 feet. Follow-up: Your doctors office will check in with you to see if there are any changes in your health. You may be asked to keep track of symptoms to share with them. They will also let you know when you are clear to be in public again. Problems to Look Out For: Contact your doctor if your recovery is not going as you expect. Get emergency care if you have problems such as: - Trouble breathing - Nonstop chest pain or pressure - Changes in awareness, confusion, or problems waking - Lips or face have bluish color - Worsening of symptoms If you think you have an emergency, call for emergency medical services right away. As taken from [facility] Albuterol Sulfate (PROAIR HFA INHALER) 8.5 Gm Hfa.aer.ad 2 PUFF IH PRN Q4-6HRS PRN for wheezing for 21 Days, #1 INHALER 0 Refills Prov: JENN SAWYER DO 06/16/21 Prednisone (PREDNISONE) 20 Mg Tablet 1 TAB PO DAILY for 10 Days, #10 TAB Prov: JENN SAWYER DO 06/16/21 Azithromycin (ZITHROMAX) 250 Mg Tablet 1 PKG PO UD, #6 TAB Prov: JENN SAWYER DO 06/16/21 JENN SAWYER DO Jun 16, 2021 10:24
[2021-06-16] MEDS ORDERED: AZIT250T PO (10:27)
[2021-06-16] MEDS ORDERED: ALBU2.5V8 IH (10:27)
[2021-06-16] MEDS ORDERED: PRED20TA PO (10:27)
== END 2021-06-16 10:50 | disposition home or self-care (01) ==
LOC: ER 08:40
DX: U07.1 COVID-19 (principal); J12.82 Pneumonia due to coronavirus disease 2019; J45.909 Unspecified asthma, uncomplicated; F31.9 Bipolar disorder, unspecified; G43.909 Migraine, unspecified, not intractable, without status migrainosus; Z88.0 Allergy status to penicillin; Z88.1 Allergy status to other antibiotic agents
CPT/HCPCS: 71045; 87426; 99284

== ENCOUNTER 2021-10-06 17:55 | Emergency (ER) | payer OTHER ==
[~2021-10-06] VITALS: Ht 157.5 cm; Wt 151.4 kg
[~2021-10-06 17:55] MED LIST changes: +AZIT250T PO; +POTA-116 PO; -POTA10TA12 PO
[2021-10-06] MEDS ORDERED: predniSONE 10 MG TABLET PO ONE (20:30)
[2021-10-06] MEDS ORDERED: IPRATRPIUM/ALBUTEROL 0.5/2.5MG 3 ML NEBU. NEB ONE (20:30)
[2021-10-06 22:02] LABS: BASO # 0.1 x10^3/uL (0.0-0.2); BASO % 1 % (0-3); EOS # 0.3 x10^3/uL (0.0-0.7); EOS % 3 % (0-3); HEMATOCRIT 41.8 % (36.0-47.0); HEMOGLOBIN 13.7 g/dL (12.0-15.5); LYMPH # 3.9 x10^3/uL (1.0-4.8); LYMPH % 39 % (24-48); MEAN CORPUSCULAR HEMOGLOBIN 29 pg (25-35); MEAN CORPUSCULAR HGB CONC 33 g/dL (31-37); MEAN CORPUSCULAR VOLUME 88 fL (79-100); MONO # 0.6 x10^3/uL (0.0-1.1); MONO % 6 % (0-9); NEUT # 5.1 x10^3/uL (1.8-7.7); NEUT % 51 % (31-73); PLATELET COUNT 298 x10^3/uL (140-400); RED BLOOD COUNT 4.77 x10^6/uL (3.50-5.40); RED CELL DISTRIBUTION WIDTH 14.7 % (11.5-14.5)
[2021-10-06 22:10] LABS: CREATININE 0.8 mg/dL (0.6-1.0); GFR 93.4; POTASSIUM 3.8 mmol/L (3.5-5.1)
--- NOTE | 2021-10-06 22:57 | RAD ---
Study: XR KNEE 3 VIEWS_RT Indication: Fall. Pain. Comparison: None. Findings: No acute fracture. Alignment is within normal limits. No large knee joint effusion. Tiny medial joint line and patellar osteophytes. Minimal if any medial compartment joint space narrowing. Impression: 1. No acute osseous abnormality. 2. Minimal early arthrosis at the medial femorotibial and patellofemoral compartments. Electronically signed by: JOLLY COBOS MD (10/06/2021 10:54 PM) [facility]
--- NOTE | 2021-10-06 22:58 | RAD ---
Study: XR CHEST 1V Indication: Fall. Pain. Comparison: 06/16/2021 Findings: Unchanged cardiomediastinal silhouette and richard. Suspected mild bibasilar volume loss. No confluent i nfiltrate, pleural effusion or pneumothorax. The partially assessed osseous structures are grossly intact. Impression: No acute radiographic abnormality of the chest. No significant change from 06/16/2021 again with suspe cted mild bibasilar volume loss. Electronically signed by: JOLLY COBOS MD (10/06/2021 10:55 PM) [facility]
[2021-10-06] MEDS ORDERED: PRED50TA PO (23:54)
--- NOTE | 2021-10-06 23:55 | PHYS DOC ---
Past Medical History Past Medical History: Anxiety, Asthma, Bipolar, Depression, Migraines Additional Past Medical Histor: carpal tunnel (bilaterally), delusional thinking, pseudopregnancy, si Past Surgical History: Tubal ligation, Other Additional Past Surgical Histo: sinus surgery, PARTIAL TUBAL LIGATION, intubation Smoking Status: Never Smoker Alcohol Use: None Drug Use: None General Adult EDM: Chief Complaint: ASTHMA HPI: HPI: Patient is a 45 year old female with history of asthma who presents with shortness of breath. Has been worsening over the past several days. Has been using albuterol inhaler 4 puffs at a time, approximately every 6 hours. Albuterol has been helping to some extent. Denies any significant cough, sputum production. No fever or chills. No sick contacts. Is vaccinated for Covid Denies any chest pain. Has some mild chest tightness. She has heard wheezing, feels similar to previous asthma exacerbations. Review of Systems: Review of Systems: Constitutional: Denies fever or chills. [] Eyes: Denies change in visual acuity. [] HENT: Denies nasal congestion or sore throat. [] Respiratory: Reports wheezing and shortness of breath. Cardiovascular: Denies chest pain or edema. [] GI: Denies abdominal pain, nausea, vomiting, bloody stools or diarrhea. [] : Denies dysuria. [] Musculoskeletal: Denies back pain or joint pain. [] Integument: Denies rash. [] Neurologic: Denies headache, focal weakness or sensory changes. [] Endocrine: Denies polyuria or polydipsia. [] Lymphatic: Denies swollen glands. [] Psychiatric: Denies depression or anxiety. [] Heart Score: C/O Chest Pain: No Current Medications: Current Medications Medications (Trade) Dose Ordered Sig/Francisco Start Time Stop Time Status Last Admin Dose Admin Albuterol/ Ipratropium (Duoneb) 9 ml 1X ONCE 10/06/21 20:30 10/06/21 20:31 DC 10/06/21 21:57 9 ML Prednisone (Prednisone) 50 mg 1X ONCE 10/06/21 20:30 10/06/21 20:31 DC 10/06/21 23:33 50 MG Allergies: Allergies: Allergies Coded Allergies Type Severity Reaction Last Updated Verified Penicillins Allergy Intermediate 08/31/15 Yes cephalexin Allergy Intermediate 08/31/15 Yes doxycycline Allergy Intermediate 12/07/15 Yes Physical Exam: PE: Constitutional: Mild respiratory distress. Cardiovascular:Heart rate regular rhythm, no murmur [] Lungs & Thorax: Bilateral expiratory wheezes, increased work of breathing. Tachypnea in the 30s. 34 word sentences Abdomen: Bowel sounds normal, soft, no tenderness, no masses, no pulsatile masses. [] Skin: Warm, dry, no erythema, no rash. [] Back: No tenderness, no CVA tenderness. [] Extremities: Can range her right knee, has some tenderness over the femoral condyles and the medial portion. No obvious swelling. Good range of motion of the knee and ankle. Neurologic: Alert and oriented X 3, normal motor function, normal sensory function, no focal deficits noted. [] Psychologic: Affect normal, judgement normal, mood normal. [] Current Patient Data: Labs: Laboratory Tests Test 10/06/21 20:58 10/06/21 21:50 SARS-CoV-2 Antigen (Rapid) Negative (NEGATIVE) White Blood Count 10.0 x10^3/uL (4.0-11.0) Red Blood Count 4.77 x10^6/uL (3.50-5.40) Hemoglobin 13.7 g/dL (12.0-15.5) Hematocrit 41.8 % (36.0-47.0) Mean Corpuscular Volume 88 fL (79-100) Mean Corpuscular Hemoglobin 29 pg (25-35) Mean Corpuscular Hemoglobin Concent 33 g/dL (31-37) Red Cell Distribution Width 14.7 % (11.5-14.5) H Platelet Count 298 x10^3/uL (140-400) Neutrophils (%) (Auto) 51 % (31-73) Lymphocytes (%) (Auto) 39 % (24-48) Monocytes (%) (Auto) 6 % (0-9) Eosinophils (%) (Auto) 3 % (0-3) Basophils (%) (Auto) 1 % (0-3) Neutrophils # (Auto) 5.1 x10^3/uL (1.8-7.7) Lymphocytes # (Auto) 3.9 x10^3/uL (1.0-4.8) Monocytes # (Auto) 0.6 x10^3/uL (0.0-1.1) Eosinophils # (Auto) 0.3 x10^3/uL (0.0-0.7) Basophils # (Auto) 0.1 x10^3/uL (0.0-0.2) Sodium Level 142 mmol/L (136-145) Potassium Level 3.8 mmol/L (3.5-5.1) Chloride Level 103 mmol/L (98-107) Carbon Dioxide Level 29 mmol/L (21-32) Anion Gap 10 (6-14) Blood Urea Nitrogen 13 mg/dL (7-20) Creatinine 0.8 mg/dL (0.6-1.0) Estimated GFR (Cockcroft-Gault) 93.4 Glucose Level 98 mg/dL (70-99) Calcium Level 9.0 mg/dL (8.5-10.1) Laboratory Tests 10/06/21 21:50 Laboratory Tests 10/06/21 21:50 Vital Signs: Vital Signs Date Time Temp Pulse Resp B/P (MAP) Pulse Ox O2 Delivery O2 Flow Rate FiO2 10/06/21 22:03 98 Room Air 10/06/21 18:26 98.3 85 25 142/88 (106) 98.3 EKG: EKG: [] Radiology/Procedures: Radiology/Procedures: [] Impression: [facility] [address] [place] [address] IMAGING REPORT Signed PATIENT: JASMIN WESLEY ACCOUNT: [id number] : 1975 LOCATION: ER AGE: 45 SEX: F EXAM STATUS: REG ER ORD. PHYSICIAN: LIAM MCKINNEY MD REASON: fall, pain PROCEDURE: KNEE RIGHT 3V Study: XR KNEE 3 VIEWS_RT Indication: Fall. Pain. Comparison: None. Findings: No acute fracture. Alignment is within normal limits. No large knee joint effusion. Tiny medial joint line and patellar osteophytes. Minimal if any medial compartment joint space narrowing. Impression: 1. No acute osseous abnormality. 2. Minimal early arthrosis at the medial femorotibial and patellofemoral compartments. Electronically signed by: JOLLY COBOS MD (10/06/2021 10:54 PM) [facility] DICTATED and SIGNED BY: JOLLY COBOS MD DATE: 10/06/21 [id number] [facility] [address] [place] [address] IMAGING REPORT Signed PATIENT: JASMIN WESLEY ACCOUNT: [id number] : 1975 LOCATION: ER AGE: 45 SEX: F EXAM STATUS: REG ER ORD. PHYSICIAN: LIAM MCKINNEY MD REASON: fall, pain PROCEDURE: CHEST AP ONLY Study: XR CHEST 1V Indication: Fall. Pain. Comparison: 06/16/2021 Findings: Unchanged cardiomediastinal silhouette and richard. Suspected mild bibasilar volume loss. No confluent infiltrate, pleural effusion or pneumothorax. The partially assessed osseous structures are grossly intact. Impression: No acute radiographic abnormality of the chest. No significant change from 06/16/2021 again with suspected mild bibasilar volume loss. Electronically signed by: JOLLY COBOS MD (10/06/2021 10:55 PM) [facility] DICTATED and SIGNED BY: JOLLY COBOS MD DATE: 10/06/21 [id number] Course & Med Decision Making: Course & Med Decision Making Pertinent Labs and Imaging studies reviewed. (See chart for details) Patient 45-year-old female with history of asthma who presents with concerns for asthma exacerbation. Symptom complex consistent with asthma exacerbation. Chest x-ray without acute process. Covid swab negative. On arrival was in mild respiratory distress with tachypnea, 34 word sentences. Improved significantly after an hour of continuous nebulizer treatments. Now with normal work of breathing. Throughout her stay her oxygen saturations were good. She also complained of right knee pain after a trip and fall earlier today. I right knee x-ray was negative. She was given her first dose of prednisone in the emergency department, and will be supplied with a 5-day prescription for steroid burst. Dragon Disclaimer: Elliott Disclaimer: This electronic medical record was generated, in whole or in part, using a voice recognition dictation system. 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 Also please take full 5-day course of steroids as prescribed. If you develop worsening shortness of breath, fever, chills, chest pain, or other new/concerning symptoms please return to the emergency department for reevaluation. Otherwise please follow-up with your primary care doctor. If you do not have a PCP, please call the number for the [facility] at [phone]. Scripts Prednisone (PREDNISONE) 50 Mg Tablet 1 TAB PO DAILY, #5 TAB 0 Refills Prov: LIAM MCKINNEY MD 10/06/21 LIAM MCKINNEY MD Oct 06, 2021 23:54
[2021-10-07 00:13] VITALS: BP 152/79
--- NOTE | 2021-10-08 18:05 | NUR ---
IP: Attempted to contact pt concerning covid results. No answer, left a voicemail to return the call.
== END 2021-10-07 00:23 | disposition home or self-care (01) ==
LOC: ER 17:55
DX: J45.901 Unspecified asthma with (acute) exacerbation (principal); M25.561 Pain in right knee; Z20.822 Contact with and (suspected) exposure to COVID-19; F31.9 Bipolar disorder, unspecified; G43.909 Migraine, unspecified, not intractable, without status migrainosus; Z88.0 Allergy status to penicillin; Z88.1 Allergy status to other antibiotic agents
CPT/HCPCS: 36415; 71045; 73562; 80048; 85025; 87426; 99285; J7512; U0003; U0005